=== PATIENT | female | born 1980 | race Caucasian/White ===

== ENCOUNTER 2017-03-09 05:46 | Inpatient (IN) ==
[2017-03-09] MEDS ORDERED: Ipratropium/Albuterol Neb 3 ML IH ONE (06:26)
--- NOTE | 2017-03-09 06:56 | Emergency Department Note ---
Disposition Clinical Impression: Pneumonia, Hypoxic Disposition: Admitted As Inpatient Condition: Fair Time of Disposition: 07:50 URI/Sore Throat HPI - General Chief Complaint: ED Upper Respiratory Infection Stated Complaint: body aches, cough, congestion Time Seen by Provider: 03/09/17 05:54 Source: patient Limitations: no limitations Nursing Notes Reviewed: Yes Vital Signs Reviewed: Yes - History of Present Illness HPI Narrative: Patient is a 36-year-old female with a past medical history of hypertension that presents the ED with chief complaint productive cough, sore throat, ear pain, fever and chills 10 days. Patient states I think I have the flu. Patient states she has been around her ex- that has the flu. Patient denies any weakness or neck pain/stiffness, abd pain, nausea, vomiting or diarrhea. States she only has chest discomfort when coughing but does report SOB and wheezing x 3 days. Patient does smoke cigarettes daily. Pt Subjective Complaint: fever, cough, flu symptoms, sore throat, earache Onset (ago): day(s) (10) Duration: constant Severity: moderate Improves with: nothing Worsens with: nothing If sputum, description: yellow Context: sick contacts Associated symptoms: Reports: denies other symptoms, fever, chills, sore throat , cough, shortness of breath, ear pain. Denies: voice changes, myalgias, diaphoresis, headache, rhinorrhea, nasal congestion, stiff neck, chest pain, abdominal pain, nausea, vomiting, diarrhea, dysuria, rash, epistaxis Treatments prior to arrival: none - Related Data Previous Rx's Medication Instructions Recorded Nitrofurantoin (BID) [Macrobid] 100 mg PO BID #20 capsule 06/12/16 Ondansetron ODT [Zofran ODT] 4 mg SL Q6HR #8 tab.rapdis 06/12/16 Promethazine [Phenergan] 25 mg RC Q8HR #12 supp.rect 11/05/16 Sulfamethoxazole/Trimeth DS 1 each PO BID #6 tablet 01/08/17 [Bactrim DS] Allergies Allergy/AdvReac Type Severity Reaction Status Date / Time hydrocodone [From Vicodin] Allergy Vomiting Verified 01/08/17 19:08 Penicillins Allergy Swelling Verified 01/08/17 19:08 of Lip/Tongue/Throat All systems ED: reviewed and negative except as stated. Review of Systems: As Per HPI Constitutional: Reports: fever, chills. Denies: weakness, weight change Eyes: Denies: eye pain, eye discharge ENT ED: Reports: throat pain. Denies: ear pain, dental pain, congestion, dysphagia Cardiovascular: Denies: chest pain, palpitations, dyspnea on exertion, edema, syncope, paroxysmal nocturnal dyspnea Respiratory: Reports: cough, dyspnea, wheezes, sputum production. Denies: hemoptysis, stridor Gastrointestinal: Denies: abdominal pain, nausea, vomiting, diarrhea, constipation, hematemesis, melena, hematochezia Genitourinary: Denies: urgency, dysuria, frequency, hematuria Musculoskeletal: Denies: back pain, neck pain Integumentary: Denies: rash Neurological: Denies: headache, weakness Psychiatric: Denies: anxiety URI PMH - Past Medical History Medical history: Reports: hepatitis Surgical history: Reports: appendectomy, cholecystectomy, hysterectomy Psychiatric history: Reports: anxiety, bipolar, depression - Social History Smoking Status: Current every day smoker Alcohol use: Reports: none Drug use: Reports: none Physical Exam - General Limitations: no limitations General appearance: alert, in no apparent distress - Head Head exam: atraumatic, normocephalic, normal inspection - Eye Eye exam: Present: normal appearance, PERRL, EOMI. Absent: conjunctival injection - ENT ENT exam: normal exam, normal oropharynx, mucous membranes moist, TM's normal bilaterally - Neck Neck exam: Present: normal inspection, full ROM, trachea midline. Absent: tenderness, meningismus, lymphadenopathy - Chest Chest inspection: Present: normal inspection, symmetric chest wall rise - Respiratory Respiratory exam: Present: wheezes. Absent: stridor, accessory muscle use, prolonged expiratory phase - Cardiovascular Cardiovascular exam: Present: normal rhythm, tachycardia, normal heart sounds - Abdominal Exam Abdominal exam: Present: soft, Non-Tender, normal bowel sounds. Absent: tenderness, distention, guarding, rebound, rigidity - Extremities Exam Extremities exam: Present: normal inspection. Absent: pedal edema - Expanded Lower Extremity Exam Gait: observed and normal - Back Exam Back exam: Present: normal inspection, full ROM. Absent: tenderness - Neurological Exam Neurological exam: Present: alert, oriented X3, CN II-XII intact - Psychiatric Psychiatric exam: Present: normal affect, normal mood - Skin Skin exam: Present: warm, dry, intact, normal color. Absent: rash, cyanosis, diaphoresis Course Course Narrative: Patient is a 36-year-old female with a past medical history of hypertension that presents the ED with chief complaint productive cough, sore throat, ear pain, fever and chills 10 days. Patient states I think I have the flu. Patient states she has been around her ex- that has the flu. Patient denies any weakness or neck pain/stiffness, abd pain, nausea, vomiting or diarrhea. States she only has chest discomfort when coughing but does report SOB and wheezing x 3 days. Patient does smoke cigarettes daily. Pt is a 36-year-old female. Temp 99 F, 02 96 on room air, HR 108, BP 109/75. and upon arrival. Head normocephalic. Eyes normal inspection. PERRL. Extraocular movements intact. ENT within normal limits. Airway patent. Neck supple, full range of motion, nontender. No signs meningeal irritation. Heart tachycardia. Lungs: diffuse expiratory wheezing throughout bilateral lung maguire. Decrease air movement . No retractions or stridor. Abdomen soft, nontender. Normal inspection, nontender. Extremities within normal limits. Neuro no focal neurological deficits noted on exam. Chest x-ray, influenza and labs ordered. Breathing treatments and prednisone given. Plan to reevaluate. CXR: 1. Right perihilar and left lower lobe airspace opacities potentially representing pneumonia or atelectasis. 2. Mild bilateral peribronchial cuffing potentially due to bronchitis or reactive airways disease. 3. Trace bilateral pleural effusions Levaquin started. Influenza A and B- On Reevaluation Patient had a temperature of 101. Tylenol and IV fluids given. Pt is currently 89% on RA after breathing treatment. We will reevaluate after steriods. Plan most likely admit. Discussed case with on-call hospitalist Dr. Ritchie. He will accept pt. Discussed with Dr. Ritchie will not send pt to the floor until CT come back and if it shows PE or any other etiology besides pneumonia will call him back with the results. Discussed case with Dr. Beard. He had [id number] time with patient and agrees with my assessment and treatment plan. CT SHOWS: 1. No acute pulmonary artery embolism. 2. Indeterminate mediastinal and bilateral hilar lymphadenopathy. 3. Multifocal bilateral infiltrates. Recommend follow up evaluations until clear. Pt stable to be transferred to the floor. Hospitalist evaluated pt in the ED. Vital Signs Temperature 99 F 03/09/17 05:47 Pulse Rate 108 03/09/17 05:47 Respiratory Rate 20 03/09/17 05:47 Blood Pressure 109/75 03/09/17 05:47 O2 Sat by Pulse Oximetry 96 03/09/17 05:47 Temperature 99.8 F H 03/09/17 09:36 Pulse Rate 99 03/09/17 09:36 Respiratory Rate 18 03/09/17 09:36 Blood Pressure 104/60 03/09/17 09:36 O2 Sat by Pulse Oximetry 90 03/09/17 09:36 Oxygen Delivery Oxygen Delivery Nasal Cannula Upper Respiratory Infection - Medical Records Medical records reviewed: Yes I reviewed the patient's medical records. - Lab Data Lab results reviewed: Yes I reviewed the patient's lab results. Result diagrams: 03/09/17 06:55 03/09/17 06:55 Lab Results 03/09/17 03/09/17 Range/Units 06:55 06:55 WBC 9.9 (4.3-11.1) K/mcL RBC 4.61 (3.82-4.97) M/mcL Hgb 13.7 (11.5-15.4) g/dL Hct 39.9 (35.3-44.9) % MCV 86.6 (83.0-100.0) fL MCH 29.7 (28.0-33.3) pg MCHC 34.3 (31.6-35.5) g/dL RDW 15.2 H (11.5-14.5) % Plt Count 156 (140-400) K/mcL MPV 11.7 (9.4-12.4) fL Immature Gran % 0.5 (0-4) % Seg Neutrophils % 75.9 % Lymphocytes % 14.3 % Monocytes % 9.1 % Eosinophils % 0.0 % Basophils % 0.2 % Neutrophils # 7.5 (1.6-8.9) K/mcL Lymphocytes # 1.4 (0.6-4.6) K/mcL Monocytes # 0.9 (0.0-1.3) K/mcL Eosinophils # 0.0 (0.0-0.6) K/mcL Basophils # 0.0 (0.0-0.2) K/mcL Sodium 133 L (136-145) mEq/L Potassium 2.9 L (3.5-5.1) mEq/L Chloride 97 L (98-107) mEq/L Carbon Dioxide 30 H (23-29) mEq/L BUN 5 L (6-20) mg/dL Creatinine 0.72 (0.60-1.20) mg/dL Est GFR ( Amer) > 60 (> 60) Est GFR (Non-Af Amer) > 60 (> 60) BUN/Creatinine Ratio 7 (6-26) Glucose 145 H (70-105) mg/dL Calculated Osmolality 276 L (280-300) Calcium 9.0 (8.6-10.3) mg/dL - Radiology Data Radiology results reviewed: Yes I reviewed the patient's radiology results. - EKG Data EKG attestation: Yes I reviewed and interpreted this EKG.
[2017-03-09 07:03] LABS: Basophils % 0.2 %; Hematocrit 39.9 % (35.3-44.9); Hemoglobin 13.7 g/dL (11.5-15.4); Immature Granulocytes % 0.5 % (0-4); Lymphocytes # 1.4 K/mcL (0.6-4.6); Lymphocytes % 14.3 %; Mean Corpuscular HGB Conc 34.3 g/dL (31.6-35.5); Mean Corpuscular Hemoglobin 29.7 pg (28.0-33.3); Mean Corpuscular Volume 86.6 fL (83.0-100.0); Mean Platelet Volume 11.7 fL (9.4-12.4); Monocytes # 0.9 K/mcL (0.0-1.3); Monocytes % 9.1 %; Neutrophils # 7.5 K/mcL (1.6-8.9); Platelet Count 156 K/mcL (140-400); Red Blood Count 4.61 M/mcL (3.82-4.97); Red Cell Distribution Width 15.2 % (11.5-14.5); Segmented Neutrophils % 75.9 %
[2017-03-09 07:20] LABS: BUN/Creatinine Ratio 7 (6-26); Blood Urea Nitrogen 5 mg/dL (6-20); Carbon Dioxide 30 mEq/L (23-29); Chloride 97 mEq/L (98-107); Glucose 145 mg/dL (70-105); Osmolality,Calculated 276 (280-300); Potassium 2.9 mEq/L (3.5-5.1); Sodium 133 mEq/L (136-145); eGFR For African Americans > 60 (> 60); eGFR For Non-African Americans > 60 (> 60)
[2017-03-09] MEDS ORDERED: 0.9 % Sodium Chloride 1,000 ML IVC ONE (07:34)
[2017-03-09] MEDS ORDERED: methylPREDNISolone 125 MG/2 ML VIAL IVP ONE (07:34)
[2017-03-09] MEDS ORDERED: Azithromycin 500 MG in D5% in Water 250 ML IVPB ONE (07:35)
[2017-03-09] MEDS ORDERED: Levofloxacin 750 MG/150 ML 750 MG/150 ML BAG IVPB ONE (07:35)
[2017-03-09] MEDS ORDERED: Ipratropium/Albuterol Neb 3 ML IH PRN ×2 (09:33→09:36)
[2017-03-09] MEDS ORDERED: traMADol 50 MG TABLET PO PRN (09:33)
--- NOTE | 2017-03-09 09:40 | Internal Med History&Physical ---
Date of Encounter: 03/09/17 Time of Encounter: 09:38 Assessment and Plan (1) Community acquired pneumonia Current visit: Yes Status: Acute Start the patient on ceftriaxone and azithromycin. Check sputum and blood cultures. CT angiogram is pending to r/o pulmonary embolism Qualifiers: Qualified Code(s): J18.9 - Pneumonia, unspecified organism (2) Sepsis Current visit: Yes Status: Acute Patient meets criteria for sepsis. We will check lactic acid. Hydrate. Qualifiers: Qualified Code(s): A41.9 - Sepsis, unspecified organism (3) Hypoxia Current visit: Yes Status: Acute Hypoxic respiratory failure. Patients requiring 2 L of oxygen to maintain saturation 90%. No accessory muscle use during my interview. Will increase nasal oxygen. Close monitoring of respiratory status Internal Medicine - H&P: HPI Chief complaint: pleuritic chest pain and cough History of present illness: Ms. Carrero is a 36 year old female presents to the emergency room today with the main complain of chest pain and cough. For the past 2 days patient has been having productive cough of yellowish sputum in addition to retrosternal pleuritic chest pain worsens with coughing or deep inspiration. She has been getting progressively short of breath was saturating 88% in the emergency room on 2 L of oxygen. Patient has been having fevers and chills up to 101.8 in the emergency room. Patient denies any sick contacts recent travel. 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 Patient is speaking in 4-5 word sentences during my interview with no accessory muscle use Past Med Surg Social Fam HX - Past Medical History Medical history: hepatitis Psychiatric history: anxiety, bipolar, depression - Past Surgical History Surgical History: appendectomy, cholecystectomy, hysterectomy - Social History Smoking Status: Current every day smoker Smokeless Tobacco Status: No Alcohol use: none Drug use: none Internal Medicine - H&P: Meds Nitrofurantoin (BID) [Macrobid] 100 mg PO BID #20 capsule 06/12/16 [Rx] Ondansetron ODT [Zofran ODT] 4 mg SL Q6HR #8 tab.rapdis 06/12/16 [Rx] Promethazine [Phenergan] 25 mg RC Q8HR #12 supp.rect 11/05/16 [Rx] Sulfamethoxazole/Trimeth DS [Bactrim DS] 1 each PO BID #6 tablet 01/08/17 [Rx] 3 Allergy/AdvReac Type Severity Reaction Status Date / Time hydrocodone [From Vicodin] Allergy Vomiting Verified 01/08/17 19:08 Penicillins Allergy Swelling Verified 01/08/17 19:08 of Lip/Tongue/Throat All Systems PM: A 10-system review of systems was performed and is negative for pertinent findings except as documented above in the HPI. Review of systems: 10 point review of systems is negative except for HPI - Constitutional Vitals: Temp Pulse Resp BP Pulse Ox 99.8 F H 99 18 104/60 90 03/09/17 09:36 03/09/17 09:36 03/09/17 09:36 03/09/17 09:36 03/09/17 09:36 Exam: Gen.: patient is alert oriented times 3 not in distress. Cardiac: normal S1 S2 no additional sounds are murmurs. Chest: diminished air entry in bases mucous membranes: moist Vitals; Temp 99.9, p 99, BP 104/60, SO2 90 on 2L nasal O2 Internal Med - H&P Results - Labs CBC & Chem 7: 03/09/17 06:55 03/09/17 06:55
[2017-03-09] MEDS ORDERED: Azithromycin 500 MG in D5% in Water 250 ML IVPB SCH (10:00)
[2017-03-09] MEDS: 0.9 % Sodium Chloride 1,000 ML IVC SCH ×2 (11:22→22:32)
[2017-03-09] MEDS: *HR* Heparin 5,000 UNIT/ML VIAL SQ SCH ×2 (15:26→22:33)
[2017-03-09] MEDS: Famotidine 20 MG/2 ML VIAL IVP SCH (17:30)
[2017-03-09] MEDS ORDERED: Venlafaxine XR (24 HR) 150 MG CAP.ER.24H PO SCH (22:15)
[2017-03-09] MEDS: Gabapentin 300 MG CAPSULE PO SCH (22:33)
[2017-03-09] MEDS: Venlafaxine XR (24 HR) 75 MG CAP.ER.24H PO SCH (22:33)
[2017-03-09] MEDS: Nicotine 21 MG PATCH.TD24 TD SCH (22:33)
[2017-03-09] MEDS: traZODone 50 MG TABLET PO SCH (22:34)
[2017-03-10] MEDS: *HR* Heparin 5,000 UNIT/ML VIAL SQ SCH ×3 (04:54→21:13)
[2017-03-10] MEDS: Famotidine 20 MG/2 ML VIAL IVP SCH ×2 (04:54→17:10)
[2017-03-10 07:36] LABS: BUN/Creatinine Ratio 12 (6-26); Basophils % 0.3 %; Blood Urea Nitrogen 8 mg/dL (6-20); Carbon Dioxide 24 mEq/L (23-29); Chloride 111 mEq/L (98-107); Glucose 188 mg/dL (70-105); Hematocrit 36.6 % (35.3-44.9); Hemoglobin 12.6 g/dL (11.5-15.4); Immature Granulocytes % 1.3 % (0-4); Lymphocytes % 15.8 %; Magnesium 1.9 mg/dL (1.6-2.6); Mean Corpuscular HGB Conc 34.4 g/dL (31.6-35.5); Mean Corpuscular Hemoglobin 29.8 pg (28.0-33.3); Mean Corpuscular Volume 86.5 fL (83.0-100.0); Mean Platelet Volume 11.9 fL (9.4-12.4); Monocytes # 0.8 K/mcL (0.0-1.3); Monocytes % 6.2 %; Neutrophils # 9.7 K/mcL (1.6-8.9); Osmolality,Calculated 293 (280-300); Platelet Count 185 K/mcL (140-400); Potassium 3.9 mEq/L (3.5-5.1); Red Blood Count 4.23 M/mcL (3.82-4.97); Red Cell Distribution Width 15.2 % (11.5-14.5); Segmented Neutrophils % 76.4 %; Sodium 140 mEq/L (136-145); eGFR For African Americans > 60 (> 60); eGFR For Non-African Americans > 60 (> 60)
[2017-03-10 08:05] LABS: Platelet Estimate Normal (Normal); Reactive Lymphocytes Present (Not Present)
[2017-03-10] MEDS: Gabapentin 300 MG CAPSULE PO SCH ×2 (09:46→21:13)
[2017-03-10] MEDS: Levofloxacin 750 MG/150 ML 750 MG/150 ML BAG IVPB SCH (09:46)
[2017-03-10] MEDS: Nicotine 21 MG PATCH.TD24 TD SCH (09:46)
[2017-03-10] MEDS: 0.9 % Sodium Chloride 1,000 ML IVC SCH ×2 (09:47→21:12)
--- NOTE | 2017-03-10 18:13 | Internal Med Progress Note ---
Date of Encounter: 03/10/17 Time of Encounter: 11:00 - Assessment and plan (1) Community acquired pneumonia Current Visit: Yes Status: Acute Assessment and plan: -Continue IV Levaquin and DuoNeb's Qualifiers: Laterality: left Lung location: lower lobe of lung Qualified Code(s): J18.1 - Lobar pneumonia, unspecified organism (2) Sepsis Current Visit: Yes Status: Acute Assessment and plan: -Sepsis ruled out Qualifiers: Sepsis type: sepsis due to unspecified organism Qualified Code(s): A41.9 - Sepsis, unspecified organism (3) Hypoxia Current Visit: Yes Status: Acute Assessment and plan: -Resolved; patient on room air - Subjective Interval history: Patient reports that symptoms of shortness of breath and cough have improved since starting IV antibiotics. - Constitutional Vitals: Temp Pulse Resp BP Pulse Ox 98.0 F 105 16 116/80 97 03/10/17 14:49 03/10/17 14:49 03/10/17 14:49 03/10/17 14:49 03/10/17 14:49 - Respiratory Respiratory exam: Present: wheezes (Bilateral expiratory wheezes) - Cardiovascular Cardiovascular exam: Present: RRR, +S1, +S2. Absent: diastolic murmur, gallop, rubs, systolic murmur Internal Medicine: Result - Labs CBC & Chem 7: 03/10/17 07:06 03/10/17 07:06 Labs: Short CBC 03/10/17 Range/Units 07:06 WBC 12.7 H (4.3-11.1) K/mcL Hgb 12.6 (11.5-15.4) g/dL Hct 36.6 (35.3-44.9) % Plt Count 185 (140-400) K/mcL Neutrophils # 9.7 H (1.6-8.9) K/mcL BMP 03/10/17 07:06 Sodium 140 Potassium 3.9 Chloride 111 H Carbon Dioxide 24 BUN 8 Creatinine 0.65 Glucose 188 H Calcium 9.0 - VTE Documentation of Mechanical Device: Intermittent pneumatic compression device Consult Discharge Plan - Plan Referrals: Sohail Marlow MD [Primary Care Provider] -
[2017-03-10] MEDS: Venlafaxine XR (24 HR) 75 MG CAP.ER.24H PO SCH (21:13)
[2017-03-10] MEDS: traZODone 50 MG TABLET PO SCH (21:13)
[2017-03-11] MEDS: Famotidine 20 MG/2 ML VIAL IVP SCH (05:19)
[2017-03-11] MEDS: *HR* Heparin 5,000 UNIT/ML VIAL SQ SCH ×4 (05:19→21:32)
[2017-03-11] MEDS: 0.9 % Sodium Chloride 1,000 ML IVC SCH ×2 (06:41→19:29)
[2017-03-11 08:56] LABS: Basophils # 0.1 K/mcL (0.0-0.2); Basophils % 0.6 %; Eosinophils % 0.1 %; Hematocrit 34.4 % (35.3-44.9); Hemoglobin 11.6 g/dL (11.5-15.4); Immature Granulocytes % 3.1 % (0-4); Lymphocytes # 3.5 K/mcL (0.6-4.6); Lymphocytes % 30.8 %; Mean Corpuscular HGB Conc 33.7 g/dL (31.6-35.5); Mean Corpuscular Hemoglobin 29.9 pg (28.0-33.3); Mean Corpuscular Volume 88.7 fL (83.0-100.0); Mean Platelet Volume 11.4 fL (9.4-12.4); Monocytes # 0.7 K/mcL (0.0-1.3); Monocytes % 5.7 %; Neutrophils # 6.8 K/mcL (1.6-8.9); Platelet Count 182 K/mcL (140-400); Red Blood Count 3.88 M/mcL (3.82-4.97); Red Cell Distribution Width 15.6 % (11.5-14.5); Segmented Neutrophils % 59.7 %
[2017-03-11 09:04] LABS: BUN/Creatinine Ratio 17 (6-26); Blood Urea Nitrogen 14 mg/dL (6-20); Calcium 8.6 mg/dL (8.6-10.3); Carbon Dioxide 25 mEq/L (23-29); Chloride 110 mEq/L (98-107); Glucose 129 mg/dL (70-105); Osmolality,Calculated 294 (280-300); Potassium 3.2 mEq/L (3.5-5.1); Sodium 141 mEq/L (136-145); eGFR For African Americans > 60 (> 60); eGFR For Non-African Americans > 60 (> 60)
[2017-03-11] MEDS: Levofloxacin 750 MG/150 ML 750 MG/150 ML BAG IVPB SCH (09:28)
[2017-03-11] MEDS: Nicotine 21 MG PATCH.TD24 TD SCH (09:28)
[2017-03-11] MEDS: Gabapentin 300 MG CAPSULE PO SCH ×2 (09:28→20:04)
[2017-03-11 09:44] LABS: Platelet Estimate Normal (Normal)
[2017-03-11 14:36] LABS: Amphetamine Screen,Urine Negative ng/mL (Cutoff=1000); Barbiturate Screen,Urine Negative ng/mL (Cutoff=200); Benzodiazepines Screen,Urine Negative ng/mL (Cutoff=200); Cannabinoid Screen,Urine Negative ng/mL (Cutoff = 50); Cocaine Screen,Urine Negative ng/mL (Cutoff= 300); Opiate Screen,Urine Negative ng/mL (Cutoff=300); Phencyclidine Screen,Urine Negative ng/mL (Cutoff=25)
--- NOTE | 2017-03-11 19:18 | Internal Med Progress Note ---
Date of Encounter: 03/11/17 Time of Encounter: 11:00 - Assessment and plan (1) Community acquired pneumonia Current Visit: Yes Status: Acute Assessment and plan: -Continue IV Levaquin and DuoNeb's Qualifiers: Laterality: left Lung location: lower lobe of lung Qualified Code(s): J18.1 - Lobar pneumonia, unspecified organism (2) Sepsis Current Visit: Yes Status: Acute Assessment and plan: -Sepsis ruled out Qualifiers: Sepsis type: sepsis due to unspecified organism Qualified Code(s): A41.9 - Sepsis, unspecified organism (3) Hypoxia Current Visit: Yes Status: Acute Assessment and plan: -Resolved; patient on room air (4) Bradycardia with 41-50 beats per minute Current Visit: Yes Status: Acute Assessment and plan: Patient has developed bradycardia and cardiology consulted - Subjective Interval history: Patient reports that symptoms of shortness of breath and cough have improved since starting IV antibiotics. Patient has however developed bradycardia and cardiology consulted - Constitutional Vitals: Temp Pulse Resp BP Pulse Ox 98.1 F 42 16 146/78 98 03/11/17 18:44 03/11/17 18:44 03/11/17 18:44 03/11/17 18:44 03/11/17 18:44 - Respiratory Respiratory exam: Present: CTAB. Absent: accessory muscle use, rales, rhonchi, wheezes - Cardiovascular Cardiovascular exam: Present: bradycardia, RRR, +S1, +S2. Absent: diastolic murmur, gallop, rubs, systolic murmur Internal Medicine: Result - Labs CBC & Chem 7: 03/11/17 08:40 03/11/17 08:40 Labs: Short CBC 03/11/17 Range/Units 08:40 WBC 11.4 H (4.3-11.1) K/mcL Hgb 11.6 (11.5-15.4) g/dL Hct 34.4 L (35.3-44.9) % Plt Count 182 (140-400) K/mcL Neutrophils # 6.8 (1.6-8.9) K/mcL BMP 03/11/17 08:40 Sodium 141 Potassium 3.2 L Chloride 110 H Carbon Dioxide 25 BUN 14 Creatinine 0.82 Glucose 129 H Calcium 8.6 - VTE Documentation of Mechanical Device: Intermittent pneumatic compression device Consult Discharge Plan - Plan Referrals: Sohail Marlow MD [Primary Care Provider] -
[2017-03-11] MEDS: traZODone 50 MG TABLET PO SCH (20:03)
[2017-03-11] MEDS: Venlafaxine XR (24 HR) 75 MG CAP.ER.24H PO SCH (20:03)
[2017-03-11] MEDS ORDERED: Acetaminophen 325 MG TABLET PO PRN (20:19)
[2017-03-11] MEDS ORDERED: Ondansetron 4 MG/2 ML VIAL IVP ONE (20:35)
[2017-03-11] MEDS ORDERED: Ondansetron 4 MG/2 ML VIAL IVP PRN (20:35)
[2017-03-11] MEDS ORDERED: Ondansetron 4 MG/2 ML VIAL ONE (20:41)
[2017-03-12] MEDS: *HR* Heparin 5,000 UNIT/ML VIAL SQ SCH (06:36)
--- NOTE | 2017-03-12 07:08 | Electrocardiograph Report ---
[address] [address] Test Date: 2017-03-09 Pat Name: Adri Carrero Department: 102 Room: 3A43 Gender: F [employer]ry Decorator: : 1980 Requested By: Kathleen Goins Order Number: [id number] Reading MD: Efe Browne MD Measurements Intervals [place] Rate: 100 P: 43 MT: 164 QRS: 28 QRSD: 102 T: 30 QT: 350 QTc: 407 Interpretive Statements SINUS TACHYCARDIA BASELINE ARTIFACT Electronically Signed On 03-12-2017 7:07:40 EST by Efe Browne MD
--- NOTE | 2017-03-12 08:22 | Cardiology Consult Note ---
<FredDarryl larson Sofya - Last Filed: 03/12/17 14:09> Date of Encounter: 03/12/17 Time of Encounter: 08:20 Assessment and Plan (1) Community acquired pneumonia Status: Acute Per Cardiology: Management per primary service. On antibiotics, prepping for DC to home. Qualifiers: Laterality: left Lung location: lower lobe of lung Qualified Code(s): J18.1 - Lobar pneumonia, unspecified organism (2) Bradycardia with 41-50 beats per minute Status: Acute Per Cardiology: ECG on arrival showed sinus tachycardia at 100. Telemetry reviewed with average heart rate 51 and lowest heart rate 44. Sinus bradycardia sinus rhythm. Home medicine of Toprol-XL 25 mg by mouth daily on hold. Has hypothyroidism, no TSH checked since November 2015. Will check TSH-- TSH ok. Patient is asymptomatic and ambulating without any difficulty. She also reports nursing staff waking her up in the middle of night with low heart rates. Denies any history of sleep apnea. Denies any snoring. Can consider outpatient sleep evaluation. She denies any dizziness, syncope, falls. Discuss with primary service and will place Holter at time of discharge for monitoring while off beta shante. Patient reports started on beta shante for history of tachycardia and hypertension. Will discuss with Dr. Salgado. Cardiology will sign off, re-consult as needed, follow-up arranged. Can consider checking echo in outpatient setting if clinically warranted. Patient verbalized understanding and agree to plan. All questions answered. Discussion w patient/family: The assessment and plan as outlined above was discussed with the patient who expressed understanding and agreement. All questions were answered. Thank you for involving us in the care of your patient. Please call with any questions. History of Present Illness Consult date: 03/12/17 Requesting physician: Bipin Ritchie Consult reason: Bradycardia Chief complaint: "Cold" History of present illness: Ms. Carrero is a 37 year old female nicotine abuse, hepatitis C, anxiety, bipolar, depression, past hx of IVDA, HTN, and hypothroidism.. Cardiology c/s for bradycardia. Previous records reviewed: "main complaint of chest pain and cough. For the past 2 days patient has been having productive cough of yellowish sputum in addition to retrosternal pleuritic chest pain worsens with coughing or deep inspiration. She has been getting progressively short of breath was saturating 88% in the emergency room on 2 L of oxygen. Patient has been having fevers and chills up to 101.8 in the emergency room. Patient denies any sick contacts recent travel. 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 Patient reports takes beta shante at home for history of high blood pressures and rapid heart rates by PCP. She reports shortness of breath has improved. Reports chest discomfort with coughing. She denies any dizziness, syncope, falls. Reports nurses were waking her up in middle night checking on her because of low heart rates. Reports compliance with hyperthyroidism medication. Denies any hx of LUKE. Reports occasional swelling in legs. Past Med Surg Social Fam HX - Past Medical History Attestation: Yes The following information was validated with the patient. Source: patient, old records reviewed Medical history: hepatitis, hypertension Psychiatric history: anxiety, bipolar, depression - Past Surgical History Surgical History: appendectomy, cholecystectomy, hysterectomy - Social History Smoking Status: Current every day smoker Packs per day: 1 Smokeless Tobacco Status: No Alcohol use: none Drug use: none - Family History Mother Adopted: [place]: Marissa Welch Age: 58 Family Member Ethnicity: Non- Living Status: Still Living Hx Family Cardiac Disorders: Yes Hx Family Respiratory Disorders: Yes Hx Family Cancer: No Hx Family GI Disorders: No Hx Family Genitourinary Disorders: No Hx Family Endocrine Disorder: Yes Hx Family Musculoskeletal Disorders: Yes Hx Family Neuromuscular Disorders: No Hx Family Neurologic Disorders: No Hx Family HEENT Disorders: No Hx Family Autoimmune Disorders: No Hx Family Reproductive Disorders: No Hx Family Psychosocial Disorders: No Hx Family Medical Disorders: No Medications and Allergies Buprenorphine HCl/Naloxone HCl [Buprenorphin-Naloxon 8-2 mg Sl] 1 tab SL BID [History] Dextroamphetamine/Amphetamine [Dextroamp-Amphetamin 30 mg Tab] 30 mg PO DAILY [History] Gabapentin [Neurontin] 300 mg PO BID 03/09/17 [History] Levothyroxine Sodium 88 mcg PO DAILY 03/09/17 [History] Meloxicam 7.5 mg PO DAILY 03/09/17 [History] Omeprazole [PriLOSEC] 20 mg PO BID 03/09/17 [History] Trazodone HCl 200 mg PO HS 03/09/17 [History] Venlafaxine HCl [Venlafaxine HCl ER] 225 mg PO DAILY 03/09/17 [History] Albuterol Sulfate [Albuterol Inhaler] 2 puff IH Q6HR PRN #1 puff 03/12/17 [Rx] Nicotine Patch [Nicoderm] 21 mg TD DAILY #30 patch.td24 03/12/17 [Rx] amLODIPine [Norvasc] 5 mg PO DAILY #30 tablet 03/12/17 [Rx] levoFLOXacin [Levaquin] 500 mg PO DAILY #3 tablet 03/12/17 [Rx] 3 Allergy/AdvReac Type Severity Reaction Status Date / Time hydrocodone [From Vicodin] Allergy Vomiting Verified 01/08/17 19:08 Penicillins Allergy Swelling Verified 01/08/17 19:08 of Lip/Tongue/Throat All Systems Review: A 10-system review of systems was performed and is negative for pertinent findings except as documented above in the HPI. - Constitutional Constitutional: chills, fever(s), lethargy - Cardiovascular Cardiovascular: as per HPI, chest pain at rest, diaphoresis - Respiratory Respiratory: cough, dyspnea Physical Examination Vital Signs, Last 4 Hours Temp Pulse Resp BP Pulse Ox 03/12/17 06:51 98.2 F 44 16 115/72 97 General: Conversant, No Apparent Distress HEENT: Atraumatic, Normocephaly, Mucus Membranes Moist Neck: No JVD, Normal carotid pulses Cardiac: Reg Rate and Rhythm, Normal S1 and S2, No Murmur Lungs: Normal Breath Sounds, No Wheeze, Rales, Rhonchi Neuro: Alert and responsive, No focal deficits noted Abdomen: Soft, Non-Tender Skin: No rashes noted on visualized skin Musculoskeletal: No Chest Wall Tenderness Extremities: No Clubbing, No Cyanosis, No Edema, Normal Pulses Results 03/11/17 08:40 03/11/17 08:40 Lab Results Laboratory Tests 08/06/14 12/09/15 01/08/17 14:11 13:11 19:24 Potassium Magnesium TSH 1.872 Urine Test Negative Urine Opiates Screen Ur Barbiturates Screen Ur Phencyclidine Scrn Ur Amphetamines Screen U Benzodiazepines Scrn Urine Cocaine Screen U Marijuana (THC) Screen Hepatitis C Ab Screen Reactive H 03/10/17 03/11/17 03/11/17 07:06 08:40 14:15 Potassium 3.2 L Magnesium 1.9 TSH Urine Test Urine Opiates Screen Negative Ur Barbiturates Screen Negative Ur Phencyclidine Scrn Negative Ur Amphetamines Screen Negative U Benzodiazepines Scrn Negative Urine Cocaine Screen Negative U Marijuana (THC) Screen Negative Hepatitis C Ab Screen ITS Impressions Chest X-Ray 03/09/17 05:56 IMPRESSION: 1. Right perihilar and left lower lobe airspace opacities potentially representing pneumonia or atelectasis. 2. Mild bilateral peribronchial cuffing potentially due to bronchitis or reactive airways disease. 3. Trace bilateral pleural effusions. D/ / Darius Durham MD / Darius Durham MD Interpreting Provider: Darius Durham MD Chest CTA 03/09/17 08:26 IMPRESSION: 1. No acute pulmonary artery embolism. 2. Indeterminate mediastinal and bilateral hilar lymphadenopathy. 3. Multifocal bilateral infiltrates. Recommend follow up evaluations until clear. D/ / 03/09/2017 09:47:39 Moshe Gutierrez MD / Didi Ivory Interpreting Provider: Moshe Gutierrez MD Head CT 03/11/17 20:41 IMPRESSION: Negative CT brain with no acute intracranial abnormality. D/ / Daniel Marin MD / Daniel Marin MD Interpreting Provider: Daniel Marin MD Active Medications Acetaminophen (Tylenol) 650 mg PO Q6HR PRN PRN Reason: Mild Pain (1-4) Stop: 09/10/17 20:20 Albuterol/Ipratropium (Duoneb) 3 ml IH [id number] PRN PRN Reason: Shortness Of Breath/Wheezing Stop: 09/08/17 09:34 Gabapentin (Neurontin) 300 mg PO BID MIKE Stop: 09/08/17 21:46 Last Admin: 03/11/17 20:04 Dose: 300 mg Heparin Sodium (Porcine) (Heparin) 5,000 unit SQ Q8HCO [facility] Stop: 09/08/17 14:01 Last Admin: 03/12/17 06:36 Dose: 5,000 unit Levofloxacin/Dextrose (Levaquin Premix 750mg/150 Ml) 750 mg in 150 mls @ 100 mls/hr IVPB DAILY MIKE PRN Reason: Protocol Stop: 09/09/17 09:01 Last Infusion: 03/12/17 08:19 Dose: Infused Levothyroxine Sodium (Synthroid) 88 mcg PO DAILY@0630 [facility] Stop: 09/11/17 06:31 Last Admin: 03/12/17 06:36 Dose: 88 mcg Nicotine (Nicoderm) 21 mg TD DAILY [facility] PRN Reason: Protocol Stop: 09/08/17 22:01 Last Admin: 03/11/17 09:28 Dose: 21 mg Omeprazole (Prilosec) 20 mg PO BIDAC [facility] PRN Reason: Protocol Stop: 09/10/17 16:31 Last Admin: 03/11/17 17:02 Dose: 20 mg Ondansetron HCl (Zofran) 4 mg IVP Q6HR PRN; Protocol PRN Reason: Nausea And Vomiting Stop: 09/10/17 20:36 Tramadol HCl (Ultram) 50 mg PO Q4HR PRN PRN Reason: Moderate Pain Stop: 09/08/17 09:34 Trazodone HCl (Trazodone) [address] [facility] Stop: 09/08/17 21:46 Last Admin: 03/11/17 20:03 Dose: 200 mg Venlafaxine HCl (Effexor Xr) [address] [facility] Stop: 09/08/17 22:16 Last Admin: 03/11/17 20:03 Dose: 225 mg - Imaging and Cardiology Chest Xray: report reviewed - EKG Interpretation EKG results cardiology: personally reviewed (ST 100), no diagnostic ischemia, other (Telemetry review with average heart rate 51 the past 24 hours, the lowest heart rate 44, sinus bradycardia to sinus rhythm, no significant events or pauses noted) Consult Discharge Plan - Plan Instructions: Holter Monitoring (DC) Additional Instructions: Holter monitor for 2 days Referrals: Salgado,Negro J, DO [Partnered Physician] - Vicky Peña [employer]IST[employer] TE[employer]ER [Advanced Practice Nurse] - 03/18/17 1:00 pm Prescriptions: Albuterol Sulfate [Albuterol Inhaler] 2 puff IH Q6HR PRN #1 puff PRN Reason: Shortness Of Breath amLODIPine [Norvasc] 5 mg PO DAILY #30 tablet levoFLOXacin [Levaquin] 500 mg PO DAILY #3 tablet Nicotine Patch [Nicoderm] 21 mg TD DAILY #30 patch.td24 <Negro Salgado - Last Filed: 03/12/17 16:55> Date of Encounter: 03/12/17 - Attending Attestation I have personally performed a face to face evaluation on this patient. I have reviewed and agree with the care plan. History and Exam by me shows: Chief complaint: cough, fever, chills Pt presented to ER with complaint of retrosternal chest pain, 8/10, worse with cough, deep breath, sharp stabbing discomfort, relieved if she does'nt cough or breath. She was also experiencing fevers and productive cough. Pt was ruled out for ACS by enzematic criteria, however bradycardia was noted on tele. SHe was observed to have slow heart rates while asleep, in the low forties, was asymtomatic. She has been more ambulatory today, with resting heart rates in the fifties, up into seventies with activity. She reports chest pain has improved, denies shortness of breath, dizziness or palpitations. PE: presents alert, orientatedx3, in no apparent distress. HEENT -normal, no carotid bruits. Heart RRR at 52 bpm, no murmurs, lifts, thrills or rubs Lungs - bilateral course rhonchi, improve with cough Abdomen: soft, obese, bowel sounds active Ext: trace pretibial edema IMP 1. Asymptomatic bradycardia, adequate chronotropic response, will continue to hold beta shante, increase activity, will discharge on 24 hour holter monitor continue to follow as outpatient. 2. Pneumonia, appreciate IM management 3. Tobacco abuse against medical advice, continue Pt will not resume metoprolol, monitor x 48 hours, follow up as outpatient in two to three weeks. Assessment and Plan Discussion w patient/family: The assessment and plan as outlined above was discussed with the patient and/or family members who expressed understanding and agreement. All questions were answered. Thank you for involving us in the care of your patient. Please call with any questions. History of Present Illness History of present illness: Ms. Carrero is a 37 year old female All Systems Review: A 10-system review of systems was performed and is negative for pertinent findings except as documented above in the HPI. Results 03/11/17 08:40 03/11/17 08:40 Lab Results 03/12/17 08:32 TSH 2.864
[2017-03-12] MEDS: Nicotine 21 MG PATCH.TD24 TD SCH (08:27)
[2017-03-12] MEDS: Gabapentin 300 MG CAPSULE PO SCH (08:27)
[2017-03-12] MEDS: Levofloxacin 750 MG/150 ML 750 MG/150 ML BAG IVPB SCH (08:28)
[2017-03-12 11:34] VITALS: BP 156/85
--- NOTE | 2017-03-12 14:38 | Discharge Summary ---
Date of Encounter: 03/12/17 Time of Encounter: 14:36 - Discharge Diagnosis (1) Sepsis Priority: Primary Status: Resolved Qualifiers: Sepsis type: sepsis due to unspecified organism Qualified Code(s): A41.9 - Sepsis, unspecified organism (2) Community acquired pneumonia Priority: Primary Status: Acute Qualifiers: Laterality: left Lung location: lower lobe of lung Qualified Code(s): J18.1 - Lobar pneumonia, unspecified organism (3) Hypoxia Priority: Primary Status: Resolved (4) Tobacco dependence Priority: Secondary Status: Acute (5) Bradycardia Priority: Secondary Status: Acute - Discharge Medications Prescriptions: Albuterol Sulfate [Albuterol Inhaler] 2 puff IH Q6HR PRN #1 puff PRN Reason: Shortness Of Breath amLODIPine [Norvasc] 5 mg PO DAILY #30 tablet levoFLOXacin [Levaquin] 500 mg PO DAILY #3 tablet Nicotine Patch [Nicoderm] 21 mg TD DAILY #30 patch.td24 Home Medications: Buprenorphine HCl/Naloxone HCl [Buprenorphin-Naloxon 8-2 mg Sl] 1 tab SL BID [History] Dextroamphetamine/Amphetamine [Dextroamp-Amphetamin 30 mg Tab] 30 mg PO DAILY [History] Gabapentin [Neurontin] 300 mg PO BID 03/09/17 [History] Levothyroxine Sodium 88 mcg PO DAILY 03/09/17 [History] Meloxicam 7.5 mg PO DAILY 03/09/17 [History] Omeprazole [PriLOSEC] 20 mg PO BID 03/09/17 [History] Trazodone HCl 200 mg PO HS 03/09/17 [History] Venlafaxine HCl [Venlafaxine HCl ER] 225 mg PO DAILY 03/09/17 [History] Albuterol Sulfate [Albuterol Inhaler] 2 puff IH Q6HR PRN #1 puff 03/12/17 [Rx] Nicotine Patch [Nicoderm] 21 mg TD DAILY #30 patch.td24 03/12/17 [Rx] amLODIPine [Norvasc] 5 mg PO DAILY #30 tablet 03/12/17 [Rx] levoFLOXacin [Levaquin] 500 mg PO DAILY #3 tablet 03/12/17 [Rx] Allergies/Adverse Reactions: 3 Allergy/AdvReac Type Severity Reaction Status Date / Time hydrocodone [From Vicodin] Allergy Vomiting Verified 01/08/17 19:08 Penicillins Allergy Swelling Verified 01/08/17 19:08 of Lip/Tongue/Throat Procedures/tests Complete & Pending: Procedures Performed prior 72 hours Category Date Time Status CT head/brain wo con [CT] Stat Cat Scan 03/11/17 20:41 Completed ECG 48 holter monitor setup [ECG] Stat Y 03/12/17 13:57 Ordered EKG [ECG 12 lead ECG] [ECG] Stat Y 03/11/17 11:39 Completed Date of admission: 03/09/17 09:33 Primary care physician: Sohail Marlow MD Consults: 03/11/17 16:44 Consult to Cardiology [CONS] Routine Comment: Consulting Provider: Cardiology Lindsey Reason for Consult: bradycardia Time Notified: 13:00 Call Completed: Yes - Patient Status Disposition: Home, Self-Care Condition: Good Overall status at discharge: patient is back to baseline - Discharge Instructions Follow Up With: Sohail Marlow MD [Primary Care Provider] - Negro Salgado DO [Partnered Physician] - Additional Instructions: Holter monitor for 2 days - Diet and Activity Activity: increase activity as tolerated Diet: low salt diet Hospital course: Ms. Carrero is a 36 year old female presents to the emergency room with the main complain of chest pain and cough. For the past 2 days patient has been having productive cough of yellowish sputum in addition to retrosternal pleuritic chest pain worsens with coughing or deep inspiration. She has been getting progressively short of breath was saturating 88% in the emergency room on 2 L of oxygen. Patient has been having fevers and chills up to 101.8 in the emergency room. Pt was admitted in the hospital and started her on empirical abx Levaquin and continued supportive care. Her symptoms started improving slowly. Pt was placed on compliance monitor and noticed she is in sinus destiny cardia. So we held her B shante Metoprolol, now her HR seems slowly improving. She remained asymptomatic , denied any lightheadedness, dizziness, syncope / pre syncopal spells. Pt was evaluated by cardiology who recommend 48 hrs holter monitor as an out pt and Echo. Will d.c her home in stable condition today. Counseled to quit smoking. - Time Spent with Patient Total time spent providing and/or coordinating discharge services: - Constitutional Vitals: Temp Pulse Resp BP Pulse Ox 98.4 F 61 14 156/85 94 03/12/17 11:33 03/12/17 11:33 03/12/17 11:33 03/12/17 11:33 03/12/17 11:33 General appearance: Present: A&O X 3, no acute distress - Head Head exam: Present: atraumatic, normal inspection - Neck Neck exam general surgery: Present: supple - Respiratory Respiratory exam: Present: decreased breath sounds. Absent: rales, respiratory distress, rhonchi, wheezes - Cardiovascular Cardiovascular exam: Present: bradycardia, +S1, +S2. Absent: systolic murmur, tachycardia - GI/Abdominal GI/Abdominal exam: Present: normal bowel sounds, soft. Absent: rebound, rigid, tenderness - Extremities Exam Extremities exam: Absent: calf tenderness, pedal edema, tenderness - Back Exam Back exam: Absent: CVA tenderness (L), CVA tenderness (R) - VTE Documentation of Mechanical Device: Intermittent pneumatic compression device
--- NOTE | 2017-03-13 07:57 | Electrocardiograph Report ---
[place] [id number] Test Date: 2017-03-11 Pat Name: Adri Carrero Department: 113 Room: 3A43 Gender: F Clinical Lab Technologist: : 1980 Requested By: Jonah Lancaster Order Number: [id number] Reading MD: Efe Browne MD Measurements Intervals Holt Rate: 45 P: -48 VT: 151 QRS: 14 QRSD: 90 T: 19 QT: 471 QTc: 424 Interpretive Statements SINUS BRADYCARDIA LOSS OF V5 CAPTURE BASELINE ARTIFACT Electronically Signed On 03-13-2017 7:09:48 EST by Efe Browne MD
== END 2017-03-12 15:30 | disposition home or self-care (01) | DRG 720 ==
LOC: 3ANU 05:46 → EMEROO 05:46 → SUATTDRO 09:33 → 3ANU 10:16
PROVIDERS: ADMIT Hospitalist; ATTEND Family Medicine

== ENCOUNTER 2019-03-04 10:02 | Inpatient (IN) ==
[~2019-03-04 10:02] MED LIST: Acetaminophen IV 1,000 MG/100 ML INFUS..BTL IVPB ONE; Gabapentin 300 MG CAPSULE PO ONE
[2019-03-04] MEDS ORDERED: *HR* OxyCODONE Immed Rel 5 MG TABLET PO PRN (10:35)
[2019-03-04] MEDS ORDERED: *HR* Promethazine 25 MG/ML VIAL IVP PRN (10:35)
[2019-03-04] MEDS ORDERED: Ondansetron 4 MG/2 ML VIAL IVP PRN ×2 (10:35→14:41)
[2019-03-04] MEDS ORDERED: *HR* HYDROmorphone (PF) 1 MG/ML SYRINGE IVP PRN (10:35)
[2019-03-04] MEDS ORDERED: Scopolamine Patch 1.5 MG PATCH.TD72 TD ONE (10:35)
[2019-03-04] MEDS ORDERED: *HR* Labetalol 20 MG/4 ML SYRINGE IVP PRN (10:35)
[2019-03-04] MEDS ORDERED: Famotidine 20 MG/2 ML VIAL IVP ONE (10:41)
[2019-03-04] MEDS ORDERED: Albuterol 2.5 MG/3 ML NEBULIZER IH PRN (10:51)
[2019-03-04] MEDS ORDERED: Clindamycin 900 MG/50 ML 900 MG/50 ML IV.SOLN IVPB ONE ×2 (10:51→11:36)
[2019-03-04] MEDS ORDERED: Gentamicin 20 MG/2 ML VIAL IM ONE (10:56)
[2019-03-04] MEDS: Ringers Solution, Lactated 1,000 ML IVC SCH ×2 (11:00→14:15)
[2019-03-04] MEDS ORDERED: GENTAMICIN IVPB ONE (11:04)
[2019-03-04] MEDS ORDERED: LOK IVPB ONE (11:04)
[2019-03-04] MEDS ORDERED: Gentamicin 360 MG in 0.9 % Sodium Chloride 100 ML IVPB ONE (11:24)
[2019-03-04] MEDS ORDERED: *HR* Succinylcholine 200 MG/10 ML VIAL IVP ONE (11:33)
[2019-03-04] MEDS ORDERED: *HR* Propofol 200 MG/20 ML VIAL IVP ONE (11:33)
[2019-03-04] MEDS ORDERED: Ondansetron 4 MG/2 ML VIAL ONE (11:33)
[2019-03-04] MEDS ORDERED: Lidocaine -MPF 2% 2 ML VIAL ONE (11:33)
[2019-03-04] MEDS ORDERED: Dexamethasone 4 MG/ML VIAL ONE (11:33)
[2019-03-04] MEDS ORDERED: *HR* Midazolam HCl 2 MG/2 ML VIAL ONE (11:33)
[2019-03-04] MEDS ORDERED: *HR* Rocuronium Bromide 50 MG/5 ML VIAL ONE (11:33)
[2019-03-04] MEDS ORDERED: *HR* FentaNYL (PF) 100 MCG/2 ML VIAL ONE ×2 (11:33→12:49)
[2019-03-04] MEDS ORDERED: Ketorolac 30 MG/ML VIAL ONE (12:47)
[2019-03-04] MEDS ORDERED: *HR* HYDROMORPHONE 2 MG/ML VIAL ONE (13:12)
[2019-03-04] MEDS ORDERED: Ringers Solution, Lactated 1,000 ML IVC SCH (14:41)
[2019-03-04] MEDS ORDERED: Naloxone 0.4 MG/ML INJ IVP PRN (14:41)
[2019-03-04] MEDS ORDERED: Sennosides 8.6 MG TABLET PO PRN (14:41)
[2019-03-04] MEDS: Ibuprofen 800 MG TABLET PO PRN ×2 (17:10→22:05)
[2019-03-04] MEDS: *HR* HYDROcodone/Acet 5/325 mg TABLET PO SCH ×2 (17:16→20:49)
[2019-03-04] MEDS ORDERED: Gabapentin 400 MG CAPSULE PO SCH (21:00)
[2019-03-04] MEDS ORDERED: Venlafaxine XR (24 HR) 75 MG CAP.ER.24H PO SCH (21:00)
[2019-03-05] MEDS: *HR* HYDROcodone/Acet 5/325 mg TABLET PO SCH ×2 (00:07→04:32)
[2019-03-05] MEDS: Ibuprofen 800 MG TABLET PO PRN (07:46)
[2019-03-05 07:51] VITALS: BP 122/79
[2019-03-05] MEDS ORDERED: FLU Vac QV 19-20 (6Month+)/PF 0.5 ML SYRINGE IM ONE (08:01)
[2019-03-05] MEDS ORDERED: Cyanocobalamin (B-12) 1,000 MCG TABLET PO SCH (09:00)
== END 2019-03-05 12:26 | disposition home or self-care (01) | DRG 513 ==
LOC: SAMDAY 10:02 → 1NENUPED 14:44
PROVIDERS: ADMIT Student in an Organized Health Care Education/Training Program; ATTEND Student in an Organized Health Care Education/Training Program

== ENCOUNTER 2019-05-13 11:13 | Observation (INO) ==
[2019-05-13] MEDS ORDERED: Isovue-370 500 ML BOTTLE IVP ONE (11:39)
[2019-05-13] MEDS ORDERED: 0.9 % Sodium Chloride 1,000 ML IVC ONE (11:39)
[2019-05-13] MEDS ORDERED: Azithromycin 500 MG in 0.9 % Sodium Chloride 250 ML IVPB ONE (11:52)
[2019-05-13] MEDS ORDERED: cefTRIAXone 1,000 MG in Water for inj. (sterile) 10 ML IVP ONE (11:52)
[2019-05-13 12:36] LABS: Basophils # 0.1 K/mcL (0.0-0.2); Basophils % 0.5 %; Eosinophils # 0.1 K/mcL (0.0-0.6); Eosinophils % 0.7 %; Hematocrit 35.8 % (35.3-44.9); Hemoglobin 11.7 g/dL (11.5-15.4); Immature Granulocytes % 0.3 % (0-4); Lymphocytes # 2.1 K/mcL (0.6-4.6); Lymphocytes % 17.9 %; Mean Corpuscular HGB Conc 32.7 g/dL (31.6-35.5); Mean Corpuscular Hemoglobin 29.8 pg (28.0-33.3); Mean Corpuscular Volume 91.1 fL (83.0-100.0); Mean Platelet Volume 11.6 fL (9.4-12.4); Monocytes # 0.6 K/mcL (0.0-1.3); Monocytes % 5.4 %; Neutrophils # 8.6 K/mcL (1.6-8.9); Platelet Count 181 K/mcL (140-400); Red Blood Count 3.93 M/mcL (3.82-4.97); Red Cell Distribution Width 15.5 % (11.5-14.5); Segmented Neutrophils % 75.2 %; White Blood Count 11.5 K/mcL (4.3-11.1)
[2019-05-13 12:56] LABS: BUN/Creatinine Ratio 12 (6-26); Blood Urea Nitrogen 9 mg/dL (6-20); Calcium 8.7 mg/dL (8.6-10.3); Carbon Dioxide 22 mEq/L (23-29); Chloride 106 mEq/L (98-107); Glucose 193 mg/dL (70-105); Osmolality,Calculated 282 (280-300); Potassium 3.1 mEq/L (3.5-5.1); Sodium 134 mEq/L (136-145); eGFR For African Americans > 60 (> 60); eGFR For Non-African Americans > 60 (> 60)
[2019-05-13 12:57] LABS: Troponin I < 0.03 ng/mL (< 0.04)
[2019-05-13] MEDS ORDERED: Potassium Chloride Elixir 20 MEQ/15 ML UDC PO ONE (13:11)
[2019-05-13 13:34] LABS: Adenovirus Not Detected (Not Detect); Bordetella Pertussis Not Detected (Not Detect); Chlamydophila pneumoniae Not Detected (Not Detect); Coronavirus 229E Not Detected (Not Detect); Coronavirus HKU1 Not Detected (Not Detect); Coronavirus NL63 Not Detected (Not Detect); Coronavirus OC43 Not Detected (Not Detect); Human Metapneumovirus Not Detected (Not Detect); Human Rhinovirus/Enterovirus DETECTED (Not Detect); Influenza A Subtype 2009 H1 Not Detected (Not Detect); Influenza B Not Detected (Not Detect); Mycoplasma pneumoniae Not Detected (Not Detect); Parainfluenza Virus 1 Not Detected (Not Detect); Parainfluenza Virus 2 Not Detected (Not Detect); Parainfluenza Virus 3 Not Detected (Not Detect); Parainfluenza Virus 4 Not Detected (Not Detect); Respiratory Syncytial Virus Not Detected (Not Detect)
[2019-05-13] MEDS ORDERED: Naloxone 0.4 MG/ML INJ IVP PRN (14:10)
[2019-05-13] MEDS ORDERED: Fluticasone Propionate Nasal 50 MCG/SPRAY BOTTLE NS PRN (14:13)
[2019-05-13] MEDS ORDERED: D5% in Water 1,000 ML IVC PRN (14:36)
[2019-05-13] MEDS ORDERED: *HR* Dextrose 50 % in Water (Syg) 50 ML SYRINGE IVP PRN (14:36)
[2019-05-13] MEDS ORDERED: Dextrose Gel 15 GM/37.5 ML TUBE PO PRN ×2 (14:36)
[2019-05-13 15:38] LABS: Estimated Average Glucose 140 mg/dl
[2019-05-13] MEDS: Ipratropium/Albuterol Neb 3 ML IH SCH ×3 (16:15→23:22)
[2019-05-13] MEDS: predniSONE 20 MG TABLET PO SCH (16:19)
[2019-05-13] MEDS: Nicotine 14 MG PATCH.TD24 TD SCH (16:21)
[2019-05-13] MEDS: Insulin LISPRO 300 UNITS/3 ML VIAL SQ SCH (16:27)
[2019-05-13] MEDS: *HR* Heparin 5,000 UNIT/ML VIAL SQ SCH (17:31)
[2019-05-13] MEDS ORDERED: AMPHETAMINE PO SCH (18:00)
[2019-05-13] MEDS ORDERED: DEXTROAMPHETAMINE PO SCH (18:00)
[2019-05-13] MEDS ORDERED: traZODone 50 MG TABLET PO SCH (21:00)
[2019-05-13] MEDS ORDERED: Venlafaxine XR (24 HR) 150 MG CAP.ER.24H PO SCH (21:00)
[2019-05-13] MEDS ORDERED: Venlafaxine XR (24 HR) 75 MG CAP.ER.24H PO SCH (21:00)
[2019-05-13] MEDS ORDERED: Gabapentin 400 MG CAPSULE PO SCH (21:00)
[2019-05-13] MEDS ORDERED: Insulin LISPRO 300 UNITS/3 ML VIAL SQ SCH (21:00)
[2019-05-14 02:44] LABS: Basophils % 0.2 %; Hematocrit 37.2 % (35.3-44.9); Immature Granulocytes % 0.7 % (0-4); Lymphocytes # 0.9 K/mcL (0.6-4.6); Mean Corpuscular HGB Conc 32.3 g/dL (31.6-35.5); Mean Corpuscular Hemoglobin 29.6 pg (28.0-33.3); Mean Corpuscular Volume 91.6 fL (83.0-100.0); Mean Platelet Volume 11.7 fL (9.4-12.4); Monocytes # 0.3 K/mcL (0.0-1.3); Monocytes % 2.6 %; Neutrophils # 10.4 K/mcL (1.6-8.9); Nucleated Red Blood Cells 0.2 /100 WBC (0); Platelet Count 190 K/mcL (140-400); Red Blood Count 4.06 M/mcL (3.82-4.97); Red Cell Distribution Width 15.6 % (11.5-14.5); Segmented Neutrophils % 88.5 %; White Blood Count 11.7 K/mcL (4.3-11.1)
[2019-05-14 03:16] LABS: BUN/Creatinine Ratio 9 (6-26); Blood Urea Nitrogen 8 mg/dL (6-20); Calcium 9.1 mg/dL (8.6-10.3); Carbon Dioxide 20 mEq/L (23-29); Chloride 108 mEq/L (98-107); Glucose 303 mg/dL (70-105); Magnesium 1.7 mg/dL (1.6-2.6); Osmolality,Calculated 294 (280-300); Phosphorous 1.1 mg/dL (2.7-4.5); Potassium 4.5 mEq/L (3.5-5.1); Sodium 137 mEq/L (136-145); eGFR For African Americans > 60 (> 60); eGFR For Non-African Americans > 60 (> 60)
[2019-05-14] MEDS: Ipratropium/Albuterol Neb 3 ML IH SCH ×3 (03:42→11:44)
[2019-05-14] MEDS: *HR* Heparin 5,000 UNIT/ML VIAL SQ SCH (06:11)
[2019-05-14 06:59] VITALS: BP 116/66
[2019-05-14] MEDS: Nicotine 14 MG PATCH.TD24 TD SCH (08:12)
[2019-05-14] MEDS: predniSONE 20 MG TABLET PO SCH (08:12)
[2019-05-14] MEDS: Insulin LISPRO 300 UNITS/3 ML VIAL SQ SCH (08:12)
[2019-05-14] MEDS ORDERED: cefTRIAXone 1,000 MG in Water for inj. (sterile) 10 ML IVP SCH (09:00)
[2019-05-14] MEDS ORDERED: BUPRENORPHINE HCL SL SCH (09:00)
[2019-05-14] MEDS ORDERED: Azithromycin 500 MG in 0.9 % Sodium Chloride 250 ML IVPB SCH (09:00)
[2019-05-14] MEDS ORDERED: Cyanocobalamin (B-12) 1,000 MCG TABLET PO SCH (09:00)
[2019-05-14] MEDS ORDERED: NALOXONE HCL SL SCH (09:00)
== END 2019-05-14 12:04 | disposition home or self-care (01) ==
LOC: 2NENU 11:13 → EMEROOARM 11:13 → SUATTDRO 14:10 → 2ANU 15:10
PROVIDERS: ADMIT Family Medicine; ATTEND Internal Medicine